=== PATIENT | male | born 1960 | race Caucasian/White ===

== ENCOUNTER 2020-08-30 08:47 | Day surgery (SDC) | payer BC ==
[2020-08-29 16:14] LABS: Absolute Lymphocytes (CBC) 2.2 K/uL (0.7-4.9); Basophils % 0.8 % (0-1.3); Hematocrit 45.9 % (39.6-49.0); Lymphocytes % 32.3 % (15.3-44.8); MPV 8.6 fL (7.6-11.3); RBC Red Blood Cell Count 4.92 M/uL (4.33-5.43)
--- NOTE | 2020-08-29 16:30 | RAD REPORT ---
EXAM DESCRIPTION: RAD - Chest Pa And Lat (2 Views) - 08/29/2020 4:07 pm CLINICAL HISTORY: preop, pending cholecystectomy COMPARISON: None TECHNIQUE: Frontal and lateral views of the chest were obtained. FINDINGS: The lungs are clear. Heart size is normal and central vasculature is within normal limit s. No pleural effusion or pneumothorax seen. No acute bony finding noted. No aortic abnormality. IMPRESSION: No acute cardiopulmonary process.
[2020-08-29 16:33] LABS: Albumin 3.7 g/dL (3.4-5.0); Bilirubin Direct 0.2 mg/dL (0-0.2); Bilirubin Total 1.4 mg/dL (0.2-1.0); Potassium 3.8 mmol/L (3.5-5.1); Protein, Total 7.2 g/dL (6.4-8.2)
[2020-08-30] MEDS ORDERED: Ringers Lactate 1,000 ML IV ONE ×2 (09:54→12:38)
[2020-08-30] MEDS: CEFOXITIN/SWI 1gm 1 GM/10 ML SYR ONE ×2 (11:20→11:46)
[2020-08-30] MEDS ORDERED: MIDAZOLAM HCL 2 MG/2 ML INJ ONE (11:28)
[2020-08-30] MEDS ORDERED: propofoL 200 MG/20 ML VIAL IV ONE (11:28)
[2020-08-30] MEDS ORDERED: LIDOCAINE 2% MPF 5 ML VIAL ONE (11:28)
[2020-08-30] MEDS ORDERED: ROCURONIUM 50 MG/5 ML VIAL IV ONE (11:29)
[2020-08-30] MEDS ORDERED: FENTANYL CITR 100 MCG/2 ML ONE (11:29)
--- NOTE | 2020-08-30 12:19 | P.BOP ---
Preoperative diagnosis: symptomatic cholelithiasis, RUQ abd pain, acute cholecystitis Postoperative diagnosis: same Primary procedure: Laparoscopic cholecystectomy Assistant To The President: Celeste Sanchez) Estimated blood loss: <10cc Specimen: gb Findings: as above Anesthesia: General Complications: None Transferred to: Recovery Room Condition: Good
[2020-08-30] MEDS ORDERED: dexAMETHasone 10 MG/ML VIAL ONE (12:34)
[2020-08-30] MEDS ORDERED: NEOSTIGMINE 1 MG/ML -5 ML ONE (12:34)
[2020-08-30] MEDS ORDERED: GLYCOPYRROLATE 0.2 MG/ML SYR ONE (12:34)
[2020-08-30] MEDS ORDERED: KETOROLAC 30 MG/ML INJ ONE (12:34)
[2020-08-30] MEDS ORDERED: ONDANSETRON 4 MG/2 ML VIAL ONE (12:34)
[2020-08-30 13:02] VITALS: O2SAT 100
[2020-08-30] MEDS ORDERED: HYDROCODONE/APAP 5/325 MG TAB PO ONE (13:40)
[2020-08-30] MEDS ORDERED: HYDROCODONE/APAP 10/325 TAB ONE (13:55)
[2020-08-30 13:58] VITALS: BP 128/82; TEMP 96.9
--- NOTE | 2020-08-31 07:41 | EKG ---
Test Date: 2020-08-29 Test Time: 14:46:07 Biomedical Equipment Technician: ERIN MEASUREMENT RESULTS: Intervals: Rate: 80 HI: 166 QRSD: 102 QT: 396 QTc: 456 [place]: P: 45 HI: 166 QRS: 52 T: 20 INTERPRETIVE STATEMENTS: Normal sinus rhythm Normal ECG No previous ECG available for comparison Electronically Signed On 08-31-20 07:35:18 CDT by Delfino Kerr
--- NOTE | 2020-09-04 20:57 | OP ---
Date of Procedure: 08/30/2020 Surgeon: Wili Balderrama MD Assistant Store Manager Sales: Celeste Rudolph. Preoperative Diagnoses: Symptomatic cholelithiasis, right upper quadrant abdominal pain, acute suzi cystitis. Postoperative Diagnoses: Symptomatic cholelithiasis, right upper quadrant abdominal pain, acute chol ecystitis. Procedure: Laparoscopic cholecystectomy. Estimated Blood Loss: Less than 10 mL. Specimen: Gallbladder. Anesthesia: General plus local. Indications: This is the case of a male, who comes to us with above diagnosis. Fully explained the benefits, alternatives, and risks of laparoscopic possible open cholecystectomy which include, but no t limited to infection, bleeding, damage to adjacent structures, anesthesia complications, choledocho lithiasis, bile leak, pancreatitis, [place], and even . He also understands this may not relieve any symptoms. He might need more than one surgical intervention. He understood, signed a consent. Procedure In Detail: The patient was brought to the operating room, placed in supine position. Anes thesia was done without complication. Abdominal area was prepped and draped in a sterile fashion. M arcaine 0.5% was injected for local anesthetic followed by sharp incision of the skin in the infraumb ilical region. The incision was carried down to fascia, which was opened under direct vision. Perit oneum was encountered, opened under direct vision. Vicryl #1 placed inside the fascia. Dash troca r was carefully introduced. Pneumoperitoneum was obtained. I placed 3 more trocars, 5 mm each one o f them in epigastric and upper quadrant area under direct visualization. This allowed me to put a gr asper in the fundus of the gallbladder and another grasper in the infundibulum retracting the gallbla dder in the inferolateral fashion exposing the triangle of Calot and obtaining critical view. The cy stic duct and cystic artery were clearly isolated, freed circumferentially and a connection between t hose and the gallbladder was clearly identified. I proceeded to ligate those by using at least 3 cli ps proximal and 1 clip distal, ligation in the middle. Same was done with the cystic artery. No russell e leak, no bleeding. The gallbladder was removed from the liver using Bovie cauterizer and removed f rom abdominal cavity using an EndoCatch through the umbilical incision. The area was inspected once again. No bile leak, no bleeding. At that moment, I proceeded to remove the trocars under direct vi jony. Deflated pneumoperitoneum. Closed the fascia with #1 Vicryl. Irrigated the subcutaneous tiss ue, closed with 3-0 chromic and the skin was approximated. Sponge count and instrument counts celestinac t. The patient tolerated the procedure well. The patient was sent to recovery in stable condition. WENDI/TED Voice ID: [id number] Report ID: [id number]
--- NOTE | 2020-09-04 21:00 | DS ---
Date of Discharge: 08/30/2020 Diagnoses: Symptomatic cholelithiasis, right upper quadrant abdominal pain, acute cholecystitis. Procedure: Laparoscopic cholecystectomy. Disposition: Home. Activity: As tolerated. No heavy lifting. Plan: Follow up in my office in 1 week. Call for appointment at [phone]. Keep area dry for 48 som rs, then may shower. WENDI/TED Voice ID: [id number] Report ID: [id number]
== END 2020-08-30 14:16 | disposition home or self-care (01) ==
LOC: OR 08:47
PROVIDERS: ATTEND Surgery
PROC: 0FT44ZZ Resection of Gallbladder, Percutaneous Endoscopic Approach (ICD-10-PCS; principal; 2020-08-30 11:15)
DX: K80.10 Calculus of gallbladder with chronic cholecystitis without obstruction (principal); R10.11 Right upper quadrant pain; Z20.822 Contact with and (suspected) exposure to COVID-19
CPT/HCPCS: 93005; 85025; 80048; 36415; 82150; 80076; 88304; 83690; 71046; 47562; U0003; J2704; J2250; J3010; J1100; J2710; J7120 ×2; J2405

== ENCOUNTER 2020-10-25 07:16 | Emergency (ER) | payer BC ==
[2020-10-25] MEDS ORDERED: MEPERIDINE HCL 25 MG/ML SYR ONE (07:42)
[2020-10-25] MEDS ORDERED: ONDANSETRON 4 MG/2 ML VIAL ONE (07:42)
[2020-10-25 07:51] LABS: Absolute Lymphocytes (CBC) 3.7 K/uL (0.7-4.9); Basophils % 0.8 % (0-1.3); Hematocrit 46.8 % (39.6-49.0); Lymphocytes % 40.3 % (15.3-44.8); MPV 8.9 fL (7.6-11.3); RBC Red Blood Cell Count 5.07 M/uL (4.33-5.43)
[2020-10-25 08:03] LABS: Albumin 4.1 g/dL (3.4-5.0); Bilirubin Direct 0.9 mg/dL (0-0.2); Potassium 3.7 mmol/L (3.5-5.1); Protein, Total 7.6 g/dL (6.4-8.2)
[2020-10-25 08:40] LABS: Urine Blood Negative (Negative); Urine Glucose Negative (Negative); Urine Protein Negative (Negative); Urine Specific Gravity >=1.030 (1.005-1.030); Urine pH 6.5 (5.0-7.0)
[2020-10-25 08:49] LABS: Urine Bacteria NONE SEEN /HPF (NONE SEEN); Urine RBC NONE SEEN /HPF (NONE SEEN)
--- NOTE | 2020-10-25 08:55 | RAD REPORT ---
EXAM DESCRIPTION: CT - Abdomen Pelvis W Contrast - 10/25/2020 8:19 am CLINICAL HISTORY: ABD PAIN, cholecystectomy approximately 7 weeks earlier COMPARISON: Abdomen Exam Complete dated 08/04/2020 TECHNIQUE: Biphasic, helical CT imaging of the abdomen and pelvis was performed following 100 ml non -ionic IV contrast. No oral contrast given. All CT scans are performed using dose optimization technique as appropriate and may include automated exposure control or mA/KV adjustment according to patient size. FINDINGS: No suspicious findings in the lung bases. The liver, spleen, and pancreas show no suspicious findings. Liver is borderline to mildly fatty infi ltrated. Cholecystectomy clips are present. No biliary tree dilatation. No hematoma, abscess or other abnormal collection in the gallbladder fossa. No portal vein abnormality. Symmetric renal function is seen with no hydronephrosis or suspicious renal mass. No pyelonephritis o r acute parenchymal process. Lateral left renal cyst is present with no suspicious characteristics. P artially filled urinary bladder shows no suspicious finding. Lobulated superior margin of the prostat e gland projects into the bladder base. Correlation can be made with PSA values. A mass at the base o f the bladder is not suspected but can be further evaluated with sonography on an outpatient basis. N o adrenal abnormalities. Small hiatal hernia is present. Food and fluid fill but do not dilate the stomach. Gastric outlet obs truction is not suspected. Duodenum is normal. Small bowel loops are not dilated but there are severa l distal small bowel loops that are fluid-filled. Patient has a small appendiceal stump that shows no acute finding. Small amount of stool present in the right-side of the colon. Colon is mostly decompr essed with no mass or acute finding identifiable. No free air, free fluid or inflammatory stranding. No mass or bulky lymphadenopathy. Patient has b ilateral fat filled inguinal hernias. No suspicious bony findings. IMPRESSION: Gastroenteritis pattern is present with no surgically emergent finding. Biliary tree is normal size for a post cholecystectomy patient and there is no hematoma abscess, mass or other gallbladder fossa abnormality. Prostate gland is not grossly enlarged but there is a lobulated contour at the bladder base -prostate interface. This could be benign hypertrophy of the prostate. Bladder base mass is unlikely but can b e correlated with outpatient ultrasound and correlated with PSA values.
--- NOTE | 2020-10-25 09:26 | ER ---
Nurse's Notes [facility] Name: Brian Layton Age: 60 yrs Sex: Male : 1960 Arrival Date: 10/25/2020 Time: 07:18 Bed 7 Private MD: Diagnosis: Infectious gastroenteritis and colitis, unspecified Presentation: 10/25 07:41 Chief complaint: EMS states: pt C/O abd pain. Coronavirus screen: At this time, the ld1 client does not indicate any symptoms associated with coronavirus-19. Ebola Screen: No symptoms or risks identified at this time. Initial Sepsis Screen: Does the patient meet any 2 criteria? Temp <36.0*C (96.8*F)) or > 38.3*C (100.9*F). No. Patient's initial sepsis screen is negative. Does the patient have a suspected source of infection? No. Patient's initial sepsis screen is negative. Risk Assessment: Do you want to hurt yourself or someone else? Patient reports no desire to harm self or others. Onset of symptoms was October 25, 2020. 07:41 Method Of Arrival: EMS: [facility] ld1 07:41 Acuity: VANDA 3 ld1 Triage Assessment: 07:44 General: Appears in no apparent distress. uncomfortable, Behavior is calm, cooperative, ld1 appropriate for age. Pain: Complains of pain in abdomen Pain does not radiate. Pain currently is 9 out of 10 on a pain scale. Quality of pain is described as burning, throbbing, Pain began 1 hour ago. Is continuous. EENT: No signs and/or symptoms were reported regarding the EENT system. Neuro: Level of Consciousness is awake, alert, obeys commands, Oriented to person, place, time, situation, Appropriate for age. Cardiovascular: Capillary refill < 3 seconds Patient's skin is warm and dry. Respiratory: Airway is patent Respiratory effort is even, unlabored, Respiratory pattern is regular, symmetrical. GI: Abdomen is round non-distended, Bowel sounds present X 4 quads. Reports lower abdominal pain, upper abdominal pain, nausea, vomiting. : No signs and/or symptoms were reported regarding the genitourinary system. Derm: No signs and/or symptoms reported regarding the dermatologic system. Musculoskeletal: No signs and/or symptoms reported regarding the musculoskeletal system. Historical: - Allergies: 07:44 No Known Allergies; ld1 - Home Meds: 07:44 Pepcid Oral [Active]; ld1 - PMHx: 07:44 None; ld1 - PSHx: 07:44 Cholecystectomy; ld1 - Immunization history:: Adult Immunizations up to date. - Social history:: Smoking status: Patient denies any tobacco usage or history of. Patient/guardian denies using alcohol. - Family history:: not pertinent. - Hospitalizations: : No recent hospitalization is reported. Screenin:24 Abuse screen: Denies threats or abuse. Denies injuries from another. Nutritional sv screening: No deficits noted. Tuberculosis screening: No symptoms or risk factors identified. Fall Risk None identified. Assessment: 07:46 Reassessment: See triage assessment. ld1 08:41 Reassessment: Patient appears in no apparent distress at this time. Patient and/or ld1 family updated on plan of care and expected duration. Pain level reassessed. Patient is alert, oriented x 3, equal unlabored respirations, skin warm/dry/pink. Sitting in bed with at bedside. Denies pain at this time. 10:35 Reassessment: Patient and/or family updated on plan of care and expected duration. Pain ld1 level reassessed. Patient is alert, oriented x 3, equal unlabored respirations, skin warm/dry/pink. Patient denies pain at this time. Vital Signs: 07:41 BP 153 / 78; Pulse 75; Resp 18; Temp 94.0(A); Pulse Ox 100% on R/A; Pain 9/10; ld1 07:46 BP 137 / 83; Pulse 61; Resp 18; Pulse Ox 100% on R/A; Pain 7/10; ld1 08:34 BP 145 / 81; Pulse 70; Resp 18; Temp 97.7(O); Pulse Ox 100% on R/A; Weight 90.72 kg; ld1 Height 6 ft. 0 in. (182.88 cm); Pain 4/10; 10:35 BP 136 / 80; Pulse 60; Resp 18; Pulse Ox 100% on R/A; ld1 08:34 Body Mass Index 27.12 (90.72 kg, 182.88 cm) ld1 ED Course: 07:18 Patient arrived in ED. rn 07:18 Arturo Lucero MD is Attending Physician. rn 07:20 Etta Huber, LUNA is Primary Nurse. ld1 07:23 Arm band placed on. sv 07:24 Patient has correct armband on for positive identification. Placed in gown. Bed in low sv position. Call light in reach. Pulse ox on. NIBP on. Door closed. Head of bed elevated. 07:42 Triage completed. ld1 07:46 Inserted saline lock: 20 gauge in right antecubital area, using aseptic technique. ld1 Blood collected. 08:00 Basic Metabolic Panel Sent. sv 08:00 CBC with Diff Sent. sv 08:19 CT Abd/Pelvis - IV Contrast Only In Process Unspecified. EDMS 08:23 Side rails up X2. Adult w/ patient. 5 08:32 Urine Microscopic Only Sent. 5 08:32 Urine collected: clean catch specimen, clear. 5 10:35 No provider procedures requiring assistance completed. IV discontinued, intact, ld1 bleeding controlled, No redness/swelling at site. Administered Medications: 07:40 Drug: Zofran (Ondansetron) 4 mg Route: IVP; Site: right antecubital; ld1 08:00 Follow up: Response: No adverse reaction ld1 07:40 Drug: Demerol (meperidine) 25 mg Route: IVP; Site: right antecubital; ld1 08:00 Follow up: Response: No adverse reaction ld1 10:35 Drug: LoMOTIL (diphenoxylate-atropine) 2 tabs Route: PO; ld1 10:40 Follow up: Response: No adverse reaction ld1 Outcome: 09:25 Discharge ordered by . rn 10:36 Discharged to home ambulatory. ld1 10:36 Condition: stable 10:36 Discharge instructions given to patient, family, Instructed on discharge instructions, follow up and referral plans. medication usage, Demonstrated understanding of instructions, follow-up care, medications. 10:36 Patient left the ED. ld1 Signatures: Dispatcher [employer] Kendal Franz RN Arturo Kauffman MD MD rn Martinez, [facility] Etta Huber, LUNA CARRASCO ld1
--- NOTE | 2020-10-25 09:26 | EDPHYS ---
Physician Documentation [facility] Name: Brian Layton Age: 60 yrs Sex: Male : 1960 Arrival Date: 10/25/2020 Time: 07:18 Bed 7 Private MD: ED Physician Arturo Lucero HPI: 10/25 07:19 This 60 yrs old Male presents to ER via Unassigned with complaints of rn abdominal pain. 07:19 The patient presents with abdominal pain. Onset: The symptoms/episode began/occurred 1 rn hour(s) ago. The symptoms do not radiate. Associated signs and symptoms: Pertinent positives: diarrhea, nausea, Pertinent negatives: blood in stools, dysuria, fever. The symptoms are described as achy, crampy. Modifying factors: The symptoms are alleviated by nothing, the symptoms are aggravated by touching the area. Severity of pain: At its worst the pain was moderate in the emergency department the pain is unchanged. The patient has not experienced similar symptoms in the past. The patient has been recently seen by a physician:. 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 . Historical: - Allergies: 07:44 No Known Allergies; ld1 - Home Meds: 07:44 Pepcid Oral [Active]; ld1 - PMHx: 07:44 None; ld1 - PSHx: 07:44 Cholecystectomy; ld1 - Immunization history:: Adult Immunizations up to date. - Social history:: Smoking status: Patient denies any tobacco usage or history of. Patient/guardian denies using alcohol. - Family history:: not pertinent. - Hospitalizations: : No recent hospitalization is reported. ROS: 07:19 Constitutional: Negative for fever, chills, and weight loss, Eyes: Negative for injury, rn pain, redness, and discharge, ENT: Negative for injury, pain, and discharge, Neck: Negative for injury, pain, and swelling, Cardiovascular: Negative for chest pain, palpitations, and edema, Respiratory: Negative for shortness of breath, cough, wheezing, and pleuritic chest pain, Abdomen/GI: + abd pain/nausea/diarrhea Back: Negative for injury and pain, : Negative for injury, bleeding, discharge, and swelling, MS/Extremity: Negative for injury and deformity, Skin: Negative for injury, rash, and discoloration, Neuro: Negative for headache, weakness, numbness, tingling, and seizure. Exam: 07:19 Constitutional: This is a well developed, well nourished patient who is awake, alert, rn appears uncomfortable Head/Face: Normocephalic, atraumatic. Eyes: Periorbital areas with no swelling, redness, or edema. ENT: dry MM Cardiovascular: Regular rate and rhythm. No pulse deficits. Respiratory: No increased work of breathing, no retractions or nasal flaring. Abdomen/GI: soft, + tenderness in bilateral lower quadrants Skin: Warm, dry MS/ Extremity: Pulses equal, no cyanosis. Neuro: Awake and alert, GCS 15 Vital Signs: 07:41 BP 153 / 78; Pulse 75; Resp 18; Temp 94.0(A); Pulse Ox 100% on R/A; Pain 9/10; ld1 07:46 BP 137 / 83; Pulse 61; Resp 18; Pulse Ox 100% on R/A; Pain 7/10; ld1 08:34 BP 145 / 81; Pulse 70; Resp 18; Temp 97.7(O); Pulse Ox 100% on R/A; Weight 90.72 kg; ld1 Height 6 ft. 0 in. (182.88 cm); Pain 4/10; 10:35 BP 136 / 80; Pulse 60; Resp 18; Pulse Ox 100% on R/A; ld1 08:34 Body Mass Index 27.12 (90.72 kg, 182.88 cm) ld1 MDM: 07:18 Patient medically screened. rn 09:22 Differential diagnosis: appendicitis, bowel obstruction, diverticulitis, gastritis, rn gastroesophageal reflux disease, non-specific abd pain, pancreatitis, Ureterolithiasis, enteritis, colitis. 09:23 Data reviewed: vital signs, nurses notes, lab test result(s), radiologic studies, CT rn scan, and as a result, I will discharge patient. Counseling: I had a detailed discussion with the patient and/or guardian regarding: the historical points, exam findings, and any diagnostic results supporting the discharge/admit diagnosis, lab results, radiology results, the need for outpatient follow up, to return to the emergency department if symptoms worsen or persist or if there are any questions or concerns that arise at home. Response to treatment: the patient's symptoms have markedly improved after treatment, the patient's condition has returned to base line, the patient is now symptom free, and as a result, I will discharge patient. Special discussion: I discussed with the patient/guardian in detail that at this point there is no indication for admission to the hospital. It is understood, however, that if the symptoms persist or worsen the patient needs to return immediately for re-evaluation. ED course: Patient reports marked improvement, no pain, ct shows enteritis, labs WNL, expected biliary tree enlargement s/p cholecystectomy, alk phos wnl, will dc home with prn zofran and return precautions.. 10/25 07:19 Order name: Basic Metabolic Panel rn 10/25 07:19 Order name: CBC with Diff rn 10/25 07:19 Order name: Hepatic Function; Complete Time: 08:03 rn 10/25 07:19 Order name: Lipase; Complete Time: 08:03 rn 10/25 07:19 Order name: Urine Microscopic Only; Complete Time: 08:58 rn 10/25 07:19 Order name: Basic Metabolic Panel; Complete Time: 08:03 EDMS 10/25 07:19 Order name: IV Saline Lock; Complete Time: 07:40 rn 10/25 07:19 Order name: Labs collected and sent; Complete Time: 07:40 rn 10/25 07:19 Order name: CT Abd/Pelvis - IV Contrast Only; Complete Time: 08:58 rn 10/25 07:19 Order name: CBC with Automated Diff; Complete Time: 08:03 EDMS 10/25 08:39 Order name: Urine Dipstick-Ancillary; Complete Time: 08:58 EDMS 10/25 07:19 Order name: Urine Dipstick-Ancillary (obtain specimen); Complete Time: 08:32 rn Administered Medications: 07:40 Drug: Zofran (Ondansetron) 4 mg Route: IVP; Site: right antecubital; ld1 08:00 Follow up: Response: No adverse reaction ld1 07:40 Drug: Demerol (meperidine) 25 mg Route: IVP; Site: right antecubital; ld1 08:00 Follow up: Response: No adverse reaction ld1 10:35 Drug: LoMOTIL (diphenoxylate-atropine) 2 tabs Route: PO; ld1 10:40 Follow up: Response: No adverse reaction ld1 Disposition: 10/25/20 09:25 Discharged to Home. Impression: Infectious gastroenteritis and colitis, unspecified. - Condition is Stable. - Discharge Instructions: Food Choices to Help Relieve Diarrhea, Adult, Viral Gastroenteritis, Adult. - Prescriptions for Zofran ODT 4 mg Oral tablet,disintegrating - place 1 tablet by TRANSLINGUAL route every 8 hours As needed; 20 tablet. Bentyl 20 mg Oral Tablet - take 1 tablet by ORAL route every 6 hours As needed; 20 tablet. - Medication Reconciliation Form, Thank You Letter, Antibiotic Education, Prescription Opioid Use form. - Follow up: Private Physician; When: As needed; Reason: Recheck today's complaints, Re-evaluation by your physician. - Problem is new. - Symptoms have improved. Signatures: Dispatcher [employer] EDMS Arturo Lucero MD MD rn Dibbern, Lauren, RN RN ld1 Corrections: (The following items were deleted from the chart) 10:36 09:25 10/25/2020 09:25 Discharged to Home. Impression: Infectious gastroenteritis and ld1 colitis, unspecified. Condition is Stable. Forms are Medication Reconciliation Form, Thank You Letter, Antibiotic Education, Prescription Opioid Use. Follow up: Private Physician; When: As needed; Reason: Recheck today's complaints, Re-evaluation by your physician. Problem is new. Symptoms have improved. rn
[2020-10-25 10:43] VITALS: O2SAT 100
[2020-10-25] MEDS ORDERED: DIPHENOX/ATROP SULF 1 TAB PO ONE (10:46)
[2020-10-25 10:47] VITALS: TEMP 97.7
[2020-10-25 10:48] VITALS: BP 136/80
== END 2020-10-25 10:36 | disposition home or self-care (01) ==
LOC: ER 07:16
DX: A09 Infectious gastroenteritis and colitis, unspecified (principal)
CPT/HCPCS: 85025; 80048; 36415; 80076; 83690; 74177; Q9967; J2175; J2405; 81003; 81015; 96374; 96375; 99284

== ENCOUNTER 2021-01-31 07:03 | Day surgery (SDC) | payer BC ==
[2021-01-31] MEDS ORDERED: Ringers Lactate 1,000 ML IV ONE (07:43)
[2021-01-31] MEDS ORDERED: FENTANYL CITR 100 MCG/2 ML ONE (08:46)
[2021-01-31] MEDS ORDERED: LIDOCAINE 1% MPF 5 ML VIAL ONE (08:46)
[2021-01-31] MEDS ORDERED: propofoL 200 MG/20 ML VIAL IV ONE ×2 (08:46→08:47)
[2021-01-31] MEDS ORDERED: GENTAMICIN SULF 80 MG/2ML INJ ONE (08:57)
[2021-01-31] MEDS ORDERED: GLUCAGON 1 MG/VIAL ONE (08:57)
--- NOTE | 2021-01-31 09:42 | ENDO RPT ---
[address], [address] ERCP PROCEDURE REPORT EXAM DATE: 01/31/2021 PATIENT NAME: Brian Layton MR #: [id number] BIRTHDATE: 1960 ATTENDING: Ed Whittington Dr STATUS: outpatient TRANSPORTATION LOGISTICS INTERNS[employer]IP: Usha Figueroa RN and Jeanine Souza CST INDICATIONS: The patient is a 60 yr old Male here for an ERCP due to stent removal, jaundice, abnormal imaging, and abnormal Liver Function Tests PROCEDURE PERFORMED: ERCP with stent removal MEDICATIONS: Per Anesthesia. CONSENT: The patient understands the risks and benefits of the procedure and understands that these risks include, but are not limited to: sedation, allergic reaction, infection, perforation and/or bleeding. Alternative means of evaluation and treatment include, among others: physical exam, x-rays, and/or surgical intervention. The patient elects to proceed with this endoscopic procedure. DESCRIPTION OF PROCEDURE: During intra-op preparation period all mechanical medical equipment was checked for proper function. Hand hygiene and appropriate measures for infection prevention was taken. Procedure, possible complications, and alternatives including but not limited to the possibility of bleeding, perforation, tear, infection, sepsis, need for surgery, need for blood transfusion, and anesthesia related complications were explained to the patient. In addition, 5-30% incidence of acute pancreatitis as a result of ERCP were explained. After the risks, benefits and alternatives of the procedure were thoroughly explained, Informed was verified, confirmed and timeout was successfully executed by the treatment team. With the patient in left semi-prone position, medications were administered intravenously.The [id number] ([id number]) was passed from the mouth into the esophagus and further advanced from the esophagus into the stomach. From stomach scope was directed to the second portion of the duodenum. Major papilla was aligned with the duodenoscope. The scope position was confirmed fluoroscopically. Rest of the findings/therapeutics are given below. The scope was then completely withdrawn from the patient and the procedure completed. The pulse, BP, and O2 saturation were monitored and documented by the physician and the nursing staff throughout the entire procedure. The patient was cared for as planned according to standard protocol. The patient was then discharged to recovery in stable condition and with appropriate post procedure care. A previous sphincterotomy was noted major papilla. A stent was present in the common bile duct. The previously placed stent was removed. Negative subsequent cholangiogram. ADVERSE EVENT: There were no complications. IMPRESSIONS: 1. Previous sphincterotomy at major papilla 2. Plastic biliary stent in the common bile duct - removed with snare 3. Negative subsequent cholangiogram RECOMMENDATIONS: follow-up: GI clinic 2 week(s) REPEAT EXAM: Ed Whittington Dr eSigned: Ed Whittington Dr 01/31/2021 9:42 AM cc: Alfredo Fields CPT CODES: ICD9 CODES: PATIENT NAME: Brian Layton MR#: [id number]
[2021-01-31 09:58] VITALS: BP 125/84; TEMP 97.4; O2SAT 100
--- NOTE | 2021-01-31 10:11 | RAD REPORT ---
EXAM DESCRIPTION: RAD - Fluoroscopy ERCP - 01/31/2021 9:58 am CLINICAL HISTORY: STENT REMOVAL COMPARISON: Cholangiogram dated 11/24/2020 FINDINGS: Three images submitted. This shows cannulation of the common bile duct and injection of co ntrast. No filling defects are seen within the common bile duct. Common bile duct is normal in calibe r. Fluoro time: 1 minutes 38 seconds IMPRESSION: Three images submitted from ERCP. No filling defect within the common bile duct. Reporte dly, a biliary stent was removed.
== END 2021-01-31 10:36 | disposition home or self-care (01) ==
LOC: OR 07:03
PROVIDERS: ATTEND Internal Medicine Gastroenterology
PROC: 0FPB8DZ Removal of Intraluminal Device from Hepatobiliary Duct, Via Natural or Artificial Opening Endoscopic (ICD-10-PCS; principal; 2021-01-31 09:00)
DX: R17 Unspecified jaundice (principal); R63.4 Abnormal weight loss; R94.5 Abnormal results of liver function studies; I10 Essential (primary) hypertension; K21.9 Gastro-esophageal reflux disease without esophagitis; Z20.822 Contact with and (suspected) exposure to COVID-19
CPT/HCPCS: 43275; U0003; J2704; J1610; J1580; J3010; J7120; C1769

== ENCOUNTER 2024-03-23 06:30 | Day surgery (SDC) | payer BC ==
[2024-03-18 12:18] LABS: Absolute Eosinophils 0.2 K/uL (0-0.5); Absolute Lymphocytes (CBC) 2.4 K/uL (0.7-4.9); Absolute Monocytes 0.7 K/uL (0.1-1.3); Basophils % 0.6 % (0-1.3); Eosinophils % 2.6 % (0-4.4); Hematocrit 49.4 % (39.6-49.0); Hemoglobin 16.2 g/dL (13.6-17.9); Lymphocytes % 38.2 % (15.3-44.8); MCH 31.6 pg (27.0-35.0); MCHC 32.8 g/dL (32.0-36.0); MCV 96.3 fL (80-100); MPV 8.5 fL (7.6-11.3); Monocytes % 10.6 % (3.3-12.3); Platelets 265 thou/uL (152-406); RBC Red Blood Cell Count 5.13 M/uL (4.33-5.43); Red Cell Distribution Width 13.8 % (12.1-15.2)
[2024-03-18 12:20] LABS: PT Prothrombin Time 11.7 SECONDS (9.4-12.5); Protime INR 1.05
--- NOTE | 2024-03-18 13:15 | RAD REPORT ---
EXAMINATION: TWO VIEW CHEST XR CLINICAL INDICATION: Male, 63 years old. BR MAIN Pre-op pending urolift. Hypertension TECHNIQUE: 2 view radiographs of the chest were performed. COMPARISON: 08/29/2020 FINDINGS: The lungs are well inflated and clear. No pneumothorax or sizable effusion. The heart is normal in si ze. Mediastinal contours are unremarkable. IMPRESSION: No acute or significant abnormalities.
--- NOTE | 2024-03-22 12:24 | EKG ---
Test Date: 2024-03-18 Test Time: 11:48:48 Sample Maker: DUC MEASUREMENT RESULTS: Intervals: Rate: 59 AK: 168 QRSD: 150 QT: 450 QTc: 445 [place]: P: 60 AK: 168 QRS: 55 T: -5 INTERPRETIVE STATEMENTS: Sinus bradycardia Right bundle branch block Abnormal ECG Compared to ECG 08/29/2020 14:46:07 Right bundle-branch block now present Sinus rhythm no longer present Electronically Signed On 03-22-24 12:17:55 OPHTHALMIC MEDICAL TECHNOLOGIST by Mason Anne
[2024-03-23] MEDS: Ringers Lactate 1,000 ML IV ONE (07:00)
[2024-03-23] MEDS ORDERED: MIDAZOLAM HCL 2 MG/2 ML INJ ONE (07:03)
[2024-03-23] MEDS ORDERED: ONDANSETRON 4 MG/2 ML VIAL ONE (07:03)
[2024-03-23] MEDS ORDERED: FENTANYL CITR 100 MCG/2 ML ONE (07:03)
[2024-03-23] MEDS ORDERED: propofoL 200 MG/20 ML VIAL IV ONE (07:03)
[2024-03-23] MEDS ORDERED: LIDOCAINE 1% MPF 5 ML VIAL ONE (07:04)
[2024-03-23] MEDS ORDERED: SUGAMMADEX SODIUM 200 MG/2 ML VIAL IV ONE (07:12)
[2024-03-23] MEDS: CEFAZOLIN SODIUM 2 GM/VIAL ONE (07:29)
[2024-03-23] MEDS ORDERED: dexAMETHasone 10 MG/ML VIAL ONE (07:38)
[2024-03-23] MEDS ORDERED: GLYCOPYRROLATE 0.2 MG/ML SYR ONE (07:50)
[2024-03-23] MEDS ORDERED: KETOROLAC 30 MG/ML INJ ONE (07:59)
[2024-03-23] MEDS ORDERED: TRAMADOL 37.5mg/APAP 325mg PER TAB ONE (09:03)
[2024-03-23] MEDS ORDERED: PHENAZOPYRIDINE 100MG TAB PO ONE (09:03)
[2024-03-23] MEDS: TRAMADOL 37.5mg/APAP 325mg PER TAB PO ONE (09:05)
[2024-03-23] MEDS: PHENAZOPYRIDINE 100MG TAB PO ONE (09:05)
[2024-03-23 12:10] VITALS: BP 145/88; O2SAT 99
[2024-03-23 12:28] VITALS: TEMP 97.3
--- NOTE | 2024-03-23 16:24 | P.OP ---
Date of Service: 03/23/24 Preoperative diagnoses: BPH with LUTS Postoperative diagnoses: BPH with LUTS Principal procedures: UroLift/prostatic urethral lift with 7 implants placed -5 UL 2 devices and 2 UL 2 ATC devices used Placement of an 18 [place] urethral Hicks catheter Bladder irrigation Indication for procedure: 63-year-old gentleman with obstructive LUTS refractory to medical therapy. He was counseled on options for surgical management and elected to proceed with the UroLift. Procedure note: The patient was consented in the preoperative holding area before being transferred to the operative suite where general anesthesia was induced. He was given Ancef 2 g IV antimicrobial prophylaxis, and pneumoboots were provided for DVT prophylaxis. He was placed in the lithotomy position, padded and secured to the table appropriately. His genitalia was prepped with Hibiclens and he was draped in standard fashion. The case was begun using the 20 [place] UroLift sheath and a visual obturator to traverse his urethra navigating beyond a point of stenotic obstruction in the bulbar urethra, ultimately entering the bladder. The previously observed lateral lobar hypertrophy was again observed but the bladder was free of mucosal lesion, foreign body or stone. I switched the visual obturator for the UroLift implant delivery device and the first implant. Since he had a bit of a median lobe that was emanating from his left lateral lobe at the bladder neck, instead of starting as I traditionally do at the bladder neck, I instead started at the patient's left apex placing the first implant at the level of the verumontanum. I angled the scope about 15 degrees laterally against the tissue at around the 3 o'clock position. I pulled the trigger once deploying the needle through the substance of the prostate. I then angled the scope and additional 15 degrees compressing the tissue completely to ensure the needle situated outside the capsular surface. I then pulled the trigger a second time deploying the capsular tab and partially retracting the needle. A third pull of the trigger did completely retract the needle and tension the suture. I then advanced the scope back toward the midline and 2 to 3 mm toward the bladder neck until the white line of the monofilament was centered in the delivery bay. At this point, I pulled the trig madelyn a fourth time deploying the urethral end piece and tailoring the suture. I then advanced the UroLift delivery device back into the patient's bladder and switched the spent implant for a new implant. I targeted the second implant this time at the level of the verumontanum on the right side at the 9 o'clock position. Completing the sequence of steps described above, I successfully placed that implant into that tissue nicely lateralizing the tissue in that location. I then turned my attention to the bladder neck where I utilized a UL 2 ATC device to grasp the median lobar tissue emanating from the left lateral lobe and lateralize the composite of that tissue against the left lateral wall at around the 3 o'clock position. This did successfully lateralized the tissue in that location, though the implant ultimately was placed a bit more distal relative to the bladder neck opening then my ultimately desired positioning. As a result, I placed a third implant using the standard UL 2 device distally more toward the bladder neck on the left and more superiorly at around the 1 to 2 o'clock position nicely lateralizing the tissue in the bladder neck region. I then turned my attention to the patient's right side where I again used a standard UL 2 implant on the patient's right at the level of the bladder neck beautifully lateralizing the tissue in that location at around the 10 to 11 o'clock position. I then surveyed the channel created after 4 UL 2 implants had been placed and 1 UL 2 ATC device had been placed. Significant lateral lobar intrusion emanating from the right la teral wall between the apex and the base was again noted with a median bar component; so I utilized a second UL 2 ATC device to grasp that tissue and lateralize it at the 9 o'clock position against the patient's right lateral wall. Survey of the channel created did reveal a nice anterior channel with a slight degree of residual intrusion coming from the left lateral wall in the mid apical zone of the prostate. As a result, I utilized a 5th and final UL 2 device to target that tissue, essentially stacking the implant above the previous UL 2 ATC implant on the patient's left side, more distally between the mid gland and the apex, elevating that tissue and creating the desired continuous anterior channel with a total of 5 UL 2 devices placed and 2 UL 2 ATC devices also placed for a total of 7 implants successfully placed. I then removed the UroLift sheath and visual obturator leaving the bladder full before placing an 18 [place] catheter via his urethra into his bladder with ease. 25 cc of sterile water was placed in the balloon, and the catheter was allowed to decompress. The drainage was light pink, consistent with the degree of slightly bothersome hematuria noted throughout the case. As a result, I utilized a 60 cc catheter tip syringe to irrigate his bladder to remove any clot within, and a small clot was removed. Once I concluded the irrigation, the drainage fluid was very light pink and completely translucent. As a result, this was connected to a leg bag and he was taken out of the lithotomy position. He was then awakened from general anesthesia before being transferred to a stretcher. He was then transferred to the recovery room in good condition. Complications: None Discharge disposition: He will be standard UroLift follow-up pathway with follow-up in about 1 month.
== END 2024-03-23 12:00 | disposition home or self-care (01) ==
LOC: OR 06:30
PROVIDERS: ATTEND Urology
PROC: 0T7D8DZ Dilation of Urethra with Intraluminal Device, Via Natural or Artificial Opening Endoscopic (ICD-10-PCS; principal; 2024-03-23 07:30)
DX: N40.1 Benign prostatic hyperplasia with lower urinary tract symptoms (principal); N13.8 Other obstructive and reflux uropathy; K21.9 Gastro-esophageal reflux disease without esophagitis; M10.9 Gout, unspecified; I10 Essential (primary) hypertension
CPT/HCPCS: 93005; 87088; 85025; 87086; 80048; 36415; 85610; 71046; 52441; 52442 ×6; J2704; J2003; J2250; J3010; J1100; J2405; J7120